=== PATIENT | female | born 1970 | race Two or more races ===

== ENCOUNTER 2021-11-13 06:51 | Day surgery (SDC) | payer OTHER | END 2021-11-13 21:45 | disposition home or self-care (01) | LOC: CIR.AMB 06:51 | PROVIDERS: ATTEND Surgery | DX: C50.411 Malignant neoplasm of upper-outer quadrant of right female breast (principal); D24.1 Benign neoplasm of right breast; N62 Hypertrophy of breast; N60.02 Solitary cyst of left breast; R59.0 Localized enlarged lymph nodes; Z20.822 Contact with and (suspected) exposure to COVID-19; E66.9 Obesity, unspecified; Z92.21 Personal history of antineoplastic chemotherapy | CPT/HCPCS: 19301; 19281; 19318; 38525; 78195; A9541 ==